=== PATIENT | male | born 1975 | race Native Hawaiian/Other Pacific Islander ===

== ENCOUNTER 2017-05-18 15:39 | Emergency (ER) | payer OTHER ==
[~2017-05-18] VITALS: Ht 180.3 cm; Wt 72.6 kg
[2017-05-18 15:35] VITALS: BP 126/84; TEMP 98.3
[2017-05-18 16:01] LABS: PLATELET COUNT 310 K/uL (142-355)
[2017-05-18 16:25] LABS: POTASSIUM 4.2 mmol/L (3.6-5.2); SODIUM 136 mmol/L (136-145)
[2017-05-18 17:13] LABS: PARTIAL THROMBOPLASTIN TIME 21.2 SECONDS (24.5-33.6)
== END 2017-05-18 19:44 | disposition short-term general hospital (02) ==
LOC: ED 15:39 → EDBD 15:39 → ED 19:44
PROVIDERS: Family Medicine
DX: R07.89 Other chest pain (principal); I24.9 Acute ischemic heart disease, unspecified; R00.0 Tachycardia, unspecified
CPT/HCPCS: 36415; 80053; 82550; 84484; 85027; 85610; 85730; 93005; 96361; 96365; 96372; 96375; 99285; J1650; J2270; J2405; J3490

== ENCOUNTER 2017-05-18 20:03 | Outpatient (CLI) | payer OTHER | END 2017-05-18 20:47 | disposition short-term general hospital (02) | LOC: AMB 20:03 | DX: R07.89 Other chest pain (principal); I24.9 Acute ischemic heart disease, unspecified; R00.0 Tachycardia, unspecified | CPT/HCPCS: A0425; A0427 ==